=== PATIENT | female | born 1990 | race Two or more races ===

== ENCOUNTER → 2020-10-09 | Outpatient (CLI) | payer OTHER ==
--- NOTE | 2020-10-09 12:17 | RAD ---
Examination: 1. Bilateral digital diagnostic mammogram 2. Limited right breast ultrasound. INDICATION: 30-year-old woman with palpable lump in the right breast on clinical exam by her referoracio g provider. COMPARISON: None. This is a baseline TECHNIQUE: CC and MLO views of both breasts were obtained with 2-D and 3-D technique and reviewed wit h computer-aided detection. Bilaterally CCL views and left spot CC and MLO views were also obtained. Targeted ultrasound of the right breast was also pursued in the area of reported palpable concern FINDINGS: Heterogeneously dense breast parenchyma. No dominant mass, suspicious calcification or architectural distortion. No mammographic correlate to the area of reported palpable concern in the anterior lower inner quadra nt. Questionable asymmetry in the lower outer posterior left breast did not persist on additional mammogr aphic imaging. Targeted ultrasound of the patient's reported area of palpable concern revealed no suspicious sonogra phic findings are definite sonographic correlate. No axillary adenopathy on sonographic survey of the right axilla either. IMPRESSION: Negative bilateral mammogram and limited right breast ultrasound. No evidence of malignancy. Recommend clinical management which should include biopsy if there are any clinically suspicious find ings. In the absence of any clinically suspicious finding, age-appropriate routine annual mammographi c screening starting at age 40 in average risk women is recommended. Discussed with patient. BI-RADS Category 1 Negative Patient entered into a reminder system with targeted due date for next mammogram. EXAM: Pelvic Ultrasound Complete INDICATION: Reason: IRREGULAR BLEEDING / Spl. Instructions: / History: LMP 10/04/2020. Negative hCG. . ? TECHNIQUE: Real-time ultrasound of the pelvis with transabdominal and endovaginal approaches using pe rmanent freeze-frame documentation. COMPARISON:?None. ? FINDINGS: ? UTERUS:?Uterus measures 7.3 x 4.8 x 4.3 cm.? Endometrial thickness 0.3 cm. Submucosal hypoechoic mass at the uterine fundus is identified measuring 0.8 x 0.9 x 0.6 cm. ? RIGHT OVARY/ADNEXA: Right ovary measures 2.5 x 1.3 x 1.2 cm.? Unremarkable. Normal ovarian blood fl ow. LEFT OVARY/ADNEXA:?Left ovary measures 3.1 x 1.4 x 1.4 cm. ?Unremarkable. Normal ovarian blood flow. ? OTHER:?No evidence of significant pelvic free fluid. ? IMPRESSION: ? Evidence of a submucosal uterine fundal mass measuring 0.8 x 0.9 x 0.6 cm that could represent a fibr oid. Electronically signed by: Robles Orellana MD (10/09/2020 12:14 PM) [id number]
== END ==
LOC: US 09:02
PROVIDERS: ATTEND Obstetrics & Gynecology
DX: R92.8 Other abnormal and inconclusive findings on diagnostic imaging of breast (principal); N92.6 Irregular menstruation, unspecified
CPT/HCPCS: 76641; 76830; 76856; 77066; G0279; 77062